=== PATIENT | female | born 1995 | race Caucasian/White ===

== ENCOUNTER 2018-09-07 13:14 | Outpatient (CLI) | payer OTHER ==
[~2018-09-07] VITALS: Ht 157.5 cm; Wt 75.9 kg
[2018-09-07 13:31] VITALS: Ht 157.5 cm; Wt 75.9 kg
[2018-09-07 13:33] VITALS: BP 119/58; PULSE 78; RESP 19
--- NOTE | 2018-09-07 16:42 | TRIAGE ---
OB Triage Datetime Report Generated by CPN: 09/07/2018 16:41 Datetime: 09/07/2018 16:22 Labor Evaluation Frequency: OCCAD Monitor Mode: External Duration (sec)2399: 50-70 Quality: Mild Pattern: Normal: <= 5 Contractions in 10 Minutes Resting Tone [place]: Relaxed Heart Rate FHR Baseline Rate: 135 Monitor Mode: External US FHR Baseline Changes: No Baseline Change Variability: Moderate 6-25 bpm Accelerations: 15X15 Decelerations: None Category: Category I Datetime: 09/07/2018 15:32 Labor Evaluation Frequency: OCCAS Monitor Mode: External Duration (sec)2399: 50-70 Quality: Mild Pattern: Normal: <= 5 Contractions in 10 Minutes Resting Tone [place]: Relaxed Heart Rate FHR Baseline Rate: 125 Monitor Mode: External US Variability: Moderate 6-25 bpm Accelerations: 15X15 Decelerations: None Category: Category I Datetime: 09/07/2018 14:07 EGA: 38.1 Datetime: 09/07/2018 13:38 Assessment Type: Triage Maternal Assessment Level of Consciousness: Fully Conscious DTR's/Clonus: DTRs 2+; No Clonus Headache: Denies Blurred Vision: No Respiratory Effort: Unlabored; Regular Rhythm; Equal Expansion Breath Sounds, Left: Clear and Equal Breath Sounds, Right: Clear and Equal Nausea/Vomiting: Denies RUQ Epigastric Pain: Denies Lower Extremities Edema: None Degree: None Upper Extremities Edema: None Degree: None Facial Edema: None Fall Risk Assessment History of Falling: (0) No Secondary Diagnosis: (0) No Ambulatory Aid: (0) Bedrest/Nurse Assist IV Therapy: (0) No Gait: (0) Normal/Bedrest/Immobile Mental Status: (0) Oriented to Own Ability Fall Score: 0 Fall Risk Score Definition: No Risk: No action required Labor Evaluation Frequency: 3-4 Monitor Mode: External Duration (sec)2399: 50-60 Quality: Mild Pattern: Normal: <= 5 Contractions in 10 Minutes Resting Tone [place]: Relaxed Heart Rate FHR Baseline Rate: 125 Monitor Mode: External US Variability: Moderate 6-25 bpm Accelerations: 15X15 Decelerations: None Category: Category I Datetime: 09/07/2018 13:37 EGA: 38.1 Datetime: 09/07/2018 13:36 Time of Arrival: 09/07/2018 13:05 Arrived By: Ambulatory Arrived From: Home Chief Complaint: R/O PREVIA Movement: Present Contractions: Denies/Absent Rupture of Membranes: Denies Vaginal Bleeding: None Vaginal Discharge: Denies Recent Sexual Intercouse: Denies Abdominal Trauma: Not Applicable Patient Complaints: Other Time Provider Notified: 09/07/2018 15:48 Provider Notified: DR AGUIRRE Initial Plan: TONY SELF POLLY
--- NOTE | 2018-09-10 04:36 | PN ---
Triage Information Date/Time late entry for service rendered on 09/07/18 Reason for visit: r/o previa Weeks of Gestation 38w1d /Para Diabetes: none Hypertention: none Objective Vital Signs Date Temp Pulse Resp B/P (MAP) Pulse Ox O2 O2 Flow FiO2 Time Delivery Rate 09/07/18 99.0 78 19 119/58 Room Air 13:33 (78) Heart Rate: 130's Heart Rate Comments CAT I tracing Contractions: None Results/Medications Imaging Results BPP 11/15 POLLY 14.6 placenta post right Disposition: Discharge Assessment/Plan A IUP 38w1d no previa P discharge home f/u with her OB GOLRIA AGUIRRE MD Sep 10, 2018 04:36
== END 2018-09-07 16:30 | disposition home or self-care (01) ==
LOC: OBT 13:14 → L-D 13:17 → OBT 16:30
PROVIDERS: ATTEND Obstetrics & Gynecology
DX: O09.33 Supervision of pregnancy with insufficient antenatal care, third trimester (principal); Z3A.38 38 weeks gestation of pregnancy
CPT/HCPCS: 76818; Z7500; G0463

== ENCOUNTER 2018-09-22 05:55 | Inpatient (IN) | payer OTHER ==
[~2018-09-22] VITALS: Ht 157.5 cm; Wt 76.1 kg
[2018-09-22 06:39] VITALS: Ht 157.5 cm; Wt 76.1 kg
[2018-09-22 06:41] VITALS: BP 151/85; PULSE 96; RESP 20
[2018-09-22] MEDS ORDERED: LACTATED RINGER'S 1,000 ML IV PRN (06:44)
[2018-09-22] MEDS ORDERED: OXYTOCIN 30 UNITS/LR 500 ML IV PRN (07:00)
[2018-09-22] MEDS ORDERED: MISOPROSTOL 200 MCG TAB PR PRN (07:00)
[2018-09-22] MEDS ORDERED: IBUPROFEN 600 MG TAB PO PRN (07:00)
[2018-09-22] MEDS ORDERED: METHYLERGONOVINE 0.2 MG INJ IM PRN (07:00)
[2018-09-22] MEDS ORDERED: CARBOPROST 250 MCG INJ IM PRN (07:00)
[2018-09-22] MEDS ORDERED: LIDOCAINE 1% (MPF) 30 ML INJ INJ PRN (07:00)
[2018-09-22] MEDS ORDERED: BUTORPHANOL 2 MG INJ IV PRN (07:00)
[2018-09-22] MEDS ORDERED: OXYTOCIN 30 UNITS/LR 500 ML IV SCH ×2 (07:00)
--- NOTE | 2018-09-22 07:50 | TRIAGE ---
OB Triage Datetime Report Generated by CPN: 09/22/2018 07:50 Datetime: 09/22/2018 07:27 Assessment Type: Admission Assessment Vaginal Bleeding: None Maternal Assessment Level of Consciousness: Keenly Alert, Responsive DTR's/Clonus: DTRs 2+; No Clonus Headache: Denies Blurred Vision: No Respiratory Effort: Unlabored; Regular Rhythm; Equal Expansion Breath Sounds, Left: Clear and Equal Breath Sounds, Right: Clear and Equal Nausea/Vomiting: Denies RUQ Epigastric Pain: Denies Lower Extremities Edema: None Degree: None Upper Extremities Edema: None Degree: None Facial Edema: None Fall Risk Assessment History of Falling: (0) No Secondary Diagnosis: (0) No Ambulatory Aid: (0) Bedrest/Nurse Assist IV Therapy: (0) No Gait: (0) Normal/Bedrest/Immobile Mental Status: (0) Oriented to Own Ability Fall Score: 0 Fall Risk Score Definition: No Risk: No action required Labor Evaluation Frequency: 0 Pattern: Normal: <= 5 Contractions in 10 Minutes Resting Tone [place]: Relaxed Heart Rate FHR Baseline Rate: 135 Variability: Moderate 6-25 bpm Accelerations: 15X15 Decelerations: None Category: Category I Pain Assessment Pain Scale: 9 Pain Presence: Intermittent Pain Type: Cramping; Contraction Pain Location: Abdomen Pain Goal: 0 Datetime: 09/22/2018 07:00 Labor Evaluation Frequency: Irregular Monitor Mode: External Duration (sec)2399: 40-100 Quality: Moderate Pattern: Normal: <= 5 Contractions in 10 Minutes Resting Tone [place]: Relaxed Heart Rate FHR Baseline Rate: 120 Monitor Mode: External US Variability: Moderate 6-25 bpm Accelerations: 15X15 Decelerations: Late Category: Category II Datetime: 09/22/2018 06:18 Vaginal Exam Dilatation (cms): 1.0 Effacement (%): 50 Station: -2 Exam By: TACO Antonio Membrane Status: Intact Vaginal Bleeding: Brown discharge Cervix, Consistency: Moderate Cervix, Position: Posterior Datetime: 09/22/2018 06:12 Stage of : OB Triage Assessment Type: Triage Maternal Assessment Level of Consciousness: Keenly Alert, Responsive DTR's/Clonus: DTRs 2+; No Clonus Headache: Denies Blurred Vision: No Respiratory Effort: Unlabored; Regular Rhythm; Equal Expansion Breath Sounds, Left: Clear and Equal Breath Sounds, Right: Clear and Equal Nausea/Vomiting: Hx of Nausea/Vomiting (Annotations: Pt vomited 1x yesterday) RUQ Epigastric Pain: Denies Lower Extremities Edema: Bilateral Lower Extremities Degree: 1+ Upper Extremities Edema: None Degree: None Facial Edema: None Temperature Route: Oral Fall Risk Assessment History of Falling: (0) No Secondary Diagnosis: (0) No Ambulatory Aid: (0) Bedrest/Nurse Assist IV Therapy: (0) No Gait: (0) Normal/Bedrest/Immobile Mental Status: (0) Oriented to Own Ability Fall Score: 0 Fall Risk Score Definition: No Risk: No action required Pain Assessment Pain Scale: 10 Pain Presence: Intermittent Pain Type: Cramping; Pressure Pain Location: Abdomen; Back Pain Relief Measures: Comfort Measures Pain Assessment Comments: Pt reports pain when moving Datetime: 09/22/2018 06:00 Time of Arrival: 09/22/2018 05:55 EGA: 40.3 Arrived By: Ambulatory Arrived From: Home Chief Complaint: Abdominal _ back pain Movement: Present Contractions: Irregular Time Contractions Began: 09/21/2018 20:30 Contractions: Pt uncertain Rupture of Membranes: Denies Vaginal Bleeding: None Vaginal Discharge: Present Abdominal Trauma: Not Applicable Patient Complaints: Contractions; Cramping; Back Pain Time Provider Notified: 09/22/2018 06:23 Provider Notified: Initial Plan: Monitor, VE Datetime: 09/07/2018 14:07 EGA: 38.2 Datetime: 09/07/2018 13:38 Fall Score: 0 Fall Risk Score Definition: No Risk: No action required Datetime: 09/07/2018 13:37 EGA: 38.1
--- NOTE | 2018-09-22 08:13 | HP ---
Date/Time of Note Date/Time of Note DATE: 09/22/18 TIME: 07:49 OB - History Hx of Present Free Text/Dictation Patient is a 22-year-old 1 para 0 at 40 weeks and 3 days of gestation with estimated date of delivery September 19, 2018 She is here for NST and BPP and complaining of uterine contractions Patient reports positive movement, denies vaginal bleeding or leaking fluid GBS status is negative Estimated Due Date: Sep 19, 2018 : 1 Para: 0 Care: Good Care Obstetrical Complications: None Medical Complications: None Past Family/Social History * Past Medical, Surgical, Family and Obstetric Histories reviewed from chart. OB Admission Exam Vital Signs Vital Signs Vital Signs Date Temp Pulse Resp B/P (MAP) Pulse Ox O2 O2 Flow FiO2 Time Delivery Rate 09/22/18 98.4 96 20 151/85 Room Air 06:41 (107) Physical Exam HEENT: WNL Heart: Rhythm Normal Lungs: Clear, Equal Abdomen: WNL Extremities: Normal Reflexes: Normal Cervical Dilatation: 1cm Effacement: 50% Station: -2 Membranes: Intact Heart Rate: 140's Accelerations: Accelerations Present Decelerations: No Decelerations Varibility: Moderate Contractions on Admission: >10 Minutes Apart Intensity: Mild Last 72 hours Lab Results Hematology - 72 Hrs Test 09/22/18 08:34 Hematocrit 33.9 % (37.0-47.0) L Hemoglobin 10.6 g/dl (12.0-16.0) L Mean Corpuscular Hemoglobin 24.8 pg (29.0-33.0) L Mean Corpuscular Hemoglobin Concent 31.3 g/dl (32.0-37.0) L Mean Corpuscular Volume 79.4 fl (82.0-101.0) L Mean Platelet Volume 11.6 fl (7.4-10.4) H Platelet Count 160 10^3/UL (140-415) Red Blood Count 4.27 10^6/ul (4.20-5.40) Red Cell Distribution Width 15.0 % (11.5-14.5) H White Blood Count 11.1 10^3/ul (4.8-10.8) H [place] [id number] Radiology Main Line: [phone] DIAGNOSTIC IMAGING REPORT Patient: BECKY FISCHER : 1995 Age: 22 Sex: F MR #: [id number] DOS: 09/22/18 0711 Ordering MD: AKILAH TINSLEY MD Location: [facility] Room/Bed: [facility] 3A PROCEDURE: US OB > 14 weeks. CLINICAL INDICATION: Post dates TECHNIQUE: Multiple sonographic images of the pelvis were obtained. The images were reviewed on a PACS workstation. COMPARISON: US 09/21/2018 FINDINGS: There is a single live intrauterine gestation. Cardiac activity is present with 124 beats per minute. Cephalic presentation. Measurements were made in order to determine age. The results are as follows: BPD = 8.69 cm 35 weeks 1 day HC = 31.51 cm 35 weeks 3 days AC = 36.86 cm 40 weeks 6 days FL = 7.44 cm 38 weeks 0 days Estimated gestational age of approximately 37 weeks 3 days. The estimated date of delivery is 10/10/2018. Estimated weight = 3592 grams (7 lb 15 oz), corresponding to 42nd percentile. No anatomic abnormalities demonstrated. The placenta is left lateral. There is no evidence for an abruption or placenta previa. IMPRESSION: Single live intrauterine gestation of approximately 37 weeks 3 days. Estimated weight = 3592 grams. RPTAT: HJ[facility] Physician Meg Date Time Electronically viewed and signed by Physician Meg on 09/22/2018 08:24 xB/ CC: AKILAH TINSLEY MD [phone] OB Assessment/Plan Reason for admission: induction of labor (postdates) Induction Method: per Misoprostol Protocol Other plan: Admit to labor and delivery Induction per protocol Pain meds as needed Copies To: CC: ELOY CAT BAHAREH MD Sep 22, 2018 08:08
[2018-09-22] MEDS: LACTATED RINGER'S 1,000 ML IV SCH ×2 (08:32→16:51)
[2018-09-22] MEDS: MISOPROSTOL 50 MCG CAPSULE PO SCH ×3 (09:25→17:30)
[2018-09-23] MEDS: MISOPROSTOL 50 MCG CAPSULE PO SCH (01:20)
[2018-09-23] MEDS: LACTATED RINGER'S 1,000 ML IV SCH ×4 (01:20→22:44)
[2018-09-23] MEDS ORDERED: FENTAnyl 2MCG/ML-ROPIV 0.2% 100 ML ONE (06:23)
--- NOTE | 2018-09-23 06:38 | PREAC ---
Date/Time of Note Date/Time of Note DATE: 09/23/18 TIME: 06:37 Anesthesia Eval and Record Evaluation Time Pre-Procedure Interview DATE: 09/23/18 TIME: 05:54 Age 22 Sex female NPO: 8 hrs Preoperative diagnosis iup @ 40 wks., , labor, h/o asthma/appy. Planned procedure autumn Past Medical History Past Medical History: Includes : : (1), Para: (0), Gestational age: (40 wks.) Surgery & Anesthesia Issues No known issue Meds Anticoagulation: No Beta Simran within 24 hr: No Reason Beta Simran not given: Pt. not on B-Simran No Active Prescriptions or Reported Meds Current Medications Lactated Ringer's 1,000 ml @ 125 mls/hr Q8H IV Last administered on 09/23/18at 01:20; Admin Dose 125 MLS/HR; Start 09/22/18 at 06:44 Butorphanol Tartrate (Stadol) 2 mg Q2H PRN IV .PAIN SCALE 6-10; Start 09/22/18 at 07:00 Lidocaine (Xylocaine 1% (Mpf)) 30 ml ONCE PRN INJ .EPISIOTOMY; Start 09/22/18 at 07:00 Oxytocin/Lactated Ringer's 500 ml @ 500 mls/hr ONCE POST IV ; Start 09/22/18 at 07:00 Oxytocin/Lactated Ringer's 500 ml @ 125 mls/hr POST IV ; Start 09/22/18 at 07:00 Ibuprofen (Motrin) 600 mg ONCE PRN PO .PAIN 1-5; Start 09/22/18 at 07:00 Lactated Ringer's 1,000 ml @ 2,000 mls/hr Q30M PRN IV .ANESTHESIA Last administered on 09/23/18at 05:48; Admin Dose 2,000 MLS/HR; Start 09/22/18 at 06:44 Oxytocin/Lactated Ringer's 500 ml @ 0 mls/hr ONCE PRN IV .VAGINAL BLEEDING; Start 09/22/18 at 07:00 Methylergonovine Maleate (Methergine) 0.2 mg ONCE PRN IM .VAGINAL BLEEDING; Start 09/22/18 at 07:00 Carboprost Tromethamine (Hemabate) 250 mcg ONCE PRN IM .VAGINAL BLEEDING; Start 09/22/18 at 07:00 Misoprostol (Cytotec) 1,000 mcg ONCE PRN NM .VAGINAL BLEEDING; Start 09/22/18 at 07:00 Misoprostol (Cytotec 50 Mcg Capsule) 50 mcg Q4 PO Last administered on 09/23/18at 01:20; Admin Dose 50 MCG; Start 09/22/18 at 09:00 Meds reviewed: Yes Allergies Coded Allergies: No Known Drug Allergies (Verified Allergy, Mild, 09/22/18) Allergies Reviewed: Yes Labs/Studies Labs Reviewed: Reviewed by anesthesiologist Result Diagram: 09/22/18 0834 Laboratory Tests 09/22/18 08:34 Blood Bank Test 09/22/18 08:36 Antibody Screen NEGATIVE Blood Type B POSITIVE Rh Immune Globulin Candidate NO test: Positive Studies: ECG (n/a), CXR (n/a) Pre-procedure Exam Last vitals Vital Signs Date Temp Pulse Resp B/P (MAP) Pulse Ox O2 O2 Flow FiO2 Time Delivery Rate 09/22/18 98.4 96 20 151/85 Room Air 06:41 (107) Airway: Adequate mouth opening, Adequate thyromental dist Mallampati: Mallampati II Teeth: Normal Lung: Normal Heart: Normal ASA Physical Status ASA physical status: 2 Emergency: E Planned Anesthetic Neuraxial: Epidural Planned Pain Management Epidural, Parenteral pain med, Local by surgeon Pre-operative Attestations Prior to commencing anesthesia and surgery, the patient was re-evaluated, there was verification of: *The patient's identity *The results of appropriate recent lab work and preoperative vital signs *The above evaluation not changing prior to induction *Anesthetic plan, risk benefits, alternative and complications discussed with patient/family; questions answered; patient/family understands, accepts and wishes to proceed. Bingo Worker used REBECCA ALTMAN MD Sep 23, 2018 06:38
[2018-09-23] MEDS ORDERED: LIDOCAINE 1.5%/EPI MPF (SDV) 30 ML VIAL ONE (07:00)
[2018-09-23] MEDS ORDERED: NALOXONE (0.4 MG/ML) INJ IV PRN ×2 (07:00→22:00)
[2018-09-23] MEDS ORDERED: ONDANSETRON 4 MG INJ ONE (07:00)
[2018-09-23] MEDS ORDERED: NALBUPHINE HCL (10 MG/1 ML) INJ IV PRN (07:00)
[2018-09-23] MEDS ORDERED: OXYTOCIN 30 UNITS/LR 500 ML BAG IV ONE (07:00)
[2018-09-23] MEDS ORDERED: ONDANSETRON 4 MG INJ IV PRN ×2 (07:00→22:00)
[2018-09-23] MEDS ORDERED: FENTAnyl 2MCG/ML-ROPIV 0.2% 100 ML BAG EPI SCH (07:00)
[2018-09-23] MEDS ORDERED: OXYTOCIN 30 UNITS/LR 500 ML IV SCH ×2 (16:00→21:00)
[2018-09-23] MEDS ORDERED: ACETAMINOPHEN 325 MG TAB PO ONE (16:00)
[2018-09-23] MEDS ORDERED: MINERAL OIL LIGHT 10 ML VIAL TOP ONE (20:00)
[2018-09-23] MEDS ORDERED: ACETAMINOPHEN 1000MG/100ML IV 100 ML IVPB ONE (20:30)
[2018-09-23] MEDS ORDERED: AMPICILLIN 2 GM/NS (PMX) 100 ML IVPB ONE (20:30)
[2018-09-23] MEDS: GENTAMICIN 80 MG/NS (PMX) 50 ML IVPB SCH (20:50)
[2018-09-23] MEDS ORDERED: OXYTOCIN 10 UNIT INJ ONE ×2 (20:59)
[2018-09-23] MEDS ORDERED: MISOPROSTOL 200 MCG TAB PR PRN (21:00)
[2018-09-23] MEDS ORDERED: CARBOPROST 250 MCG INJ IM PRN (21:00)
[2018-09-23] MEDS ORDERED: CEFAZOLIN 2 GM/50 ML (PMX) 50 ML IVPB SCH (21:00)
[2018-09-23] MEDS ORDERED: METHYLERGONOVINE 0.2 MG INJ IM PRN (21:00)
[2018-09-23] MEDS ORDERED: OXYTOCIN 30 UNITS/LR 500 ML IV PRN (21:00)
[2018-09-23] MEDS ORDERED: morphine SULFATE/PF (10 MG/10 ML) INJ ONE ×2 (21:01)
--- NOTE | 2018-09-23 21:49 | PAC ---
Date/Time of Note Date/Time of Note DATE: 09/23/18 TIME: 21:40 Post-Anesthesia Notes Post-Anesthesia Note Last documented vital signs Vital Signs Date Temp Pulse Resp B/P (MAP) Pulse Ox O2 O2 Flow FiO2 Time Delivery Rate 09/23/18 102.0 20:34 09/22/18 96 20 151/85 Room Air 06:41 (107) Activity: WNL Respiratory function: WNL Cardiovascular function: WNL Mental status: Baseline Pain reasonably controlled: Yes Hydration appropriate: Yes Nausea/Vomiting absent: Yes Comments BP:124/64, P:99, Spo2:100%, T:99 QUENTIN ROJAS MD Sep 23, 2018 21:49
[2018-09-23] MEDS ORDERED: DIPHENHYDRAMINE 50 MG INJ IV PRN (22:00)
[2018-09-23] MEDS ORDERED: morphine 2 MG INJ IV PRN (22:00)
[2018-09-24] MEDS: AMPICILLIN 1 GM/NS (PMX) 50 ML IVPB SCH ×5 (00:30→13:00)
[2018-09-24] MEDS: KETOROLAC 30 MG INJ IV PRN ×3 (00:48→21:28)
[2018-09-24] MEDS ORDERED: OXYTOCIN 30 UNITS/LR 500 ML IV SCH (00:52)
[2018-09-24] MEDS ORDERED: LACTATED RINGER'S 1,000 ML IV SCH (00:52)
[2018-09-24] MEDS ORDERED: OXYCODONE/ACETAMINOPHEN (5/325) TAB PO PRN (01:00)
[2018-09-24] MEDS ORDERED: SENNA/DOCUSATE NA (8.6MG/50MG) TAB PO PRN (01:00)
[2018-09-24] MEDS: CEFAZOLIN 1 GM/50 ML (PMX) 50 ML IVPB SCH ×3 (01:00→16:53)
[2018-09-24] MEDS ORDERED: METHYLERGONOVINE 0.2 MG INJ IM PRN (01:00)
[2018-09-24] MEDS ORDERED: OXYTOCIN 30 UNITS/LR 500 ML IV PRN (01:00)
[2018-09-24] MEDS ORDERED: MISOPROSTOL 200 MCG TAB PR PRN (01:00)
[2018-09-24] MEDS ORDERED: MAGNESIUM HYDROXIDE 30ML CUP PO PRN (01:00)
[2018-09-24] MEDS ORDERED: LANOLIN HPA 1 PKT TOP PRN (01:00)
[2018-09-24] MEDS ORDERED: BISACODYL 10 MG SUPP PR PRN (01:00)
[2018-09-24] MEDS ORDERED: ONDANSETRON 4 MG INJ IV PRN (01:00)
[2018-09-24] MEDS ORDERED: CARBOPROST 250 MCG INJ IM PRN (01:00)
[2018-09-24] MEDS ORDERED: ACETAMINOPHEN 325 MG TAB PO PRN (01:00)
[2018-09-24] MEDS ORDERED: AZITHROMYCIN 500MG/NS (PMX) 250 ML IVPB ONE (01:00)
--- NOTE | 2018-09-24 01:05 | OPR ---
Operative Report Planned Procedure Free Text/Dictation 22-year-old 1 para 0 at 40 weeks and 4 days of gestation induction for postdates Procedure date Sep 23, 2018 Procedure(s) Primary low transverse section Performed by see signature line [employer] [place] Attendant Yandy Rogers RN Pre-procedure diagnosis 1. heart rate tracing category 2/ tachycardia 2. Chorioamnionitis [id number] Anesthesia Type: Wiuct1v epidural Post-Procedure Post-procedure diagnosis 1. heart rate tracing category 2/ tachycardia 2. Chorioamnionitis Findings Live Baby [girl], Apgars [9] and [9], weight [7 pounds 7 ounces/ 3370 g], position [direct OP], [vertex] presentation IV fluid 1000 cc EBL 600 cc Urine output 200 cc Estimated Blood Loss: 500 - 600 mls Specimen(s) Placenta Grafts/Implant(s) none Complication(s) none Pt Condition post procedure: stable Disposition: PACU Procedure Description Patient was taken to the operating room after adequate amount of anesthesia was given patient was prepped and draped in normal sterile fashion Low transverse Pfannenstiel skin incision was made. Incision was carried through to the underlying layer of fascia using Bovie Fascia was incised in the midline and incision was extended bilaterally using Bovie Both anterior and posterior edge of the fascia were from underlying layer of rectus muscles Rectus muscles were in the midline and peritoneum was identified and entered sharply without any difficulty Peritoneum was extended bilaterally manually. A bladder flap was created. Then a low transverse uterine incision was made on the uterus Fetus was delivered from vertex presentation and after 30 seconds delayed cord clamping the fetus was handed immediately to the waiting ICU team Placenta was delivered manually intact. Uterus was exteriorized. Uterus was cleared off of all clots and debris Uterine incision was closed with 1 Vicryl suture in both running locked and a second layer imbricating fashion Multiple irrigations were performed and excellent hemostasis was noted. Both adnexa appeared normal Uterus was returned in the abdomen. Peritoneal closure proceeded with 2-0 Vicryl in a running fashion. Rectus muscles were reapproximated with 2-0 Vicryl Excellent hemostasis was confirmed Fascia was closed with 0-Vicryl suture in 2 separate segments in a running fashion Subcutaneous layer was closed with 0- plain suture in a continuous fashion Skin was closed with end-sorb laura and Dermabond glue All sponge, lap, needle counts were reported to be correct Patient tolerated the procedure well and taken back to recovery room in a stable condition AKILAH TINSLEY MD Sep 24, 2018 01:05
[2018-09-24] MEDS: GENTAMICIN 80 MG/NS (PMX) 50 ML IVPB SCH ×3 (04:52→22:06)
[2018-09-24] MEDS: CLINDAMYCIN 900 MG/D5W (PMX) 50 ML IVPB SCH ×4 (06:15→14:51)
[2018-09-24 08:00] VITALS: BP 109/55; PULSE 85; RESP 18
[2018-09-24] MEDS: LACTATED RINGER'S 1,000 ML IV SCH ×2 (10:30→21:29)
[2018-09-24 12:00] VITALS: BP 109/66; PULSE 88; RESP 18
[2018-09-24 16:00] VITALS: BP 114/56; PULSE 79; RESP 16
--- NOTE | 2018-09-24 18:00 | QN ---
Documentation Comment Postop day #1 Status post primary Patient stable and afebrile Vital signs stable VS - Last 72 Hours, by Label Date Temp Pulse Resp B/P (MAP) Pulse Ox O2 O2 Flow FiO2 Time Delivery Rate 09/24/18 97.9 79 16 114/56 16:00 (75) 09/24/18 98.2 88 18 109/66 96 Room Air 12:00 (80) 09/24/18 98.4 85 18 109/55 98 Room Air 08:00 (73) 09/23/18 102.0 20:34 09/23/18 101.6 19:50 09/22/18 98.4 96 20 151/85 Room Air 06:41 (107) Hematology - 72 Hrs Test 09/22/18 08:34 09/24/18 13:51 Hematocrit 33.9 % (37.0-47.0) L 29.1 % (37.0-47.0) L Hemoglobin 10.6 g/dl (12.0-16.0) L 9.0 g/dl (12.0-16.0) L Mean Corpuscular 24.8 pg (29.0-33.0) L 24.9 pg (29.0-33.0) L Hemoglobin Mean Corpuscular 31.3 g/dl (32.0-37.0) L 30.9 g/dl (32.0-37.0) L Hemoglobin Concent Mean Corpuscular Volume 79.4 fl (82.0-101.0) L 80.6 fl (82.0-101.0) L Mean Platelet Volume 11.6 fl (7.4-10.4) H 12.6 fl (7.4-10.4) H Platelet Count 160 10^3/UL (140-415) 123 10^3/UL (140-415) #L Red Blood Count 4.27 10^6/ul (4.20-5.40) 3.61 10^6/ul (4.20-5.40) L Red Cell Distribution 15.0 % (11.5-14.5) H 15.1 % (11.5-14.5) H Width White Blood Count 11.1 10^3/ul (4.8-10.8) 20.2 10^3/ul (4.8-10.8) H #H Monocytes # (Manual) 1.0 10^3/ul (0.3-0.9) H Chemistry Test 09/24/18 13:51 Sodium Level 138 mmol/L (135-144) Potassium Level 3.7 mmol/L (3.5-5.1) Chloride Level 106 mmol/L (97-110) Carbon Dioxide Level 27 mmol/L (21-31) Anion Gap 5 (5-13) Blood Urea Nitrogen 4 mg/dl (7-20) L Creatinine 0.78 mg/dl (0.44-1.00) Est Glomerular Filtrat Rate mL/min > 60 mL/min (>60) Glucose Level 62 mg/dl (70-220) L Calcium Level 8.2 mg/dl (8.4-10.2) L Total Bilirubin 0.6 mg/dl (0.2-1.3) Direct Bilirubin 0.00 mg/dl (0.00-0.20) Indirect Bilirubin 0.6 mg/dl (0-1.1) Aspartate Amino Transf (AST/SGOT) 102 IU/L (15-46) H Alanine Aminotransferase (ALT/SGPT) 37 IU/L (13-69) Alkaline Phosphatase 116 IU/L (42-121) Total Protein 5.6 g/dl (6.1-8.1) L Albumin 2.8 g/dl (3.3-4.9) L Globulin 2.80 g/dl (1.3-3.2) Albumin/Globulin Ratio 1.00 Microbiology BLOOD CULTURE Preliminary BCULT GRAM BOTTLE 1 Gram negative rods . seen on gram stain of the broth BCULT GRAM BOTTLE 2 Gram negative rods . seen on gram stain of the broth Organism 1 GRAM NEGATIVE MAMIE CRITICAL TEST VALUE BTL 1 . PHONED TO & READ BACK BY JOCELYN DE LA CRUZ, AT 0859, 09/24/18, HN. Microbiology URINE CULTURE Preliminary Organism 1 GRAM NEGATIVE MAMIE COLONY COUNT >100,000 CFU/ml Abdomen soft, fundus firm Incision clean,dry,intact Extremities nontender Assessment and plan Patient stable and doing well Continue with IV antibiotics Ancef and gentamicin Labs to be done in a.m. Encouraged to ambulate Continue with routine postop care AKILAH TINSLEY MD Sep 24, 2018 18:00
[2018-09-24 21:30] VITALS: BP 131/66; PULSE 110; RESP 18
[2018-09-25 00:52] VITALS: BP 123/61; PULSE 68; RESP 18
[2018-09-25] MEDS ORDERED: CEFAZOLIN 1 GM/50 ML (PMX) 50 ML IVPB SCH (01:00)
[2018-09-25 03:25] VITALS: BP 136/69; PULSE 99; RESP 19
[2018-09-25] MEDS: OXYCODONE/ACETAMINOPHEN (5/325) TAB PO PRN ×3 (05:52→20:20)
[2018-09-25] MEDS: GENTAMICIN 80 MG/NS (PMX) 50 ML IVPB SCH ×2 (05:52→13:00)
[2018-09-25 08:00] VITALS: BP 133/71; PULSE 89; RESP 18
[2018-09-25 17:04] VITALS: BP 111/55; PULSE 67; RESP 18
[2018-09-25 19:55] VITALS: BP 127/77; PULSE 77; RESP 19
[2018-09-25] MEDS: IBUPROFEN 600 MG TAB PO PRN (21:27)
--- NOTE | 2018-09-26 00:36 | PN ---
Date/Time of Note Date/Time of Note DATE: 09/26/18 TIME: 00:29 OB Subjective Subjective Subjective Late entry note. Patient seen on 09/25/2018 POD#2 Patient is doing well. She denies nausea, vomiting, shortness of breath, chest pain, headache. She has been ambulating without difficulty, tolerating regular diet. Pain is well controlled on current medications OB Objective Objective Objective Vital Signs Date Temp Pulse Resp B/P (MAP) Pulse Ox O2 O2 Flow FiO2 Time Delivery Rate 09/25/18 98.2 77 19 127/77 Room Air 19:55 (94) 09/24/18 98 21:30 General: AAO X 3, comfortable, NAD, appropriate mood and affect. ABD: +BS. Soft, non-tender. Uterus 2 cm below umbilicus Incision: Clear, dry, intact. No erythema, drainage or induration. Flank: No CVA tenderness (B/L) LE: Mild edema. No clubbing, cyanosis, thigh or calf tenderness (B/L). Homans 'sign is negative OB Assessment/Plan Other plan: 22 years old 1 para 1-0-0-1 s/p delivery at 40 weeks and 4 days. POD#2 - AF, VSS - Baby is doing well, at bed side. She is bonding well - Contraception methods with R/B/A/FR discussed - Continue care - Discharge home tomorrow - Rx and instruction given - Follow up in one and 6 weeks ELOY CAT Sep 26, 2018 00:36
[2018-09-26 03:55] VITALS: BP 114/68; PULSE 71; RESP 18
[2018-09-26] MEDS: OXYCODONE/ACETAMINOPHEN (5/325) TAB PO PRN (07:35)
[2018-09-26] MEDS: IBUPROFEN 600 MG TAB PO PRN (07:35)
[2018-09-26 08:00] VITALS: BP 139/71; PULSE 106; RESP 18
--- NOTE | 2018-09-26 09:27 | DS ---
Date/Time of Note Date/Time of Note DATE: 09/26/18 TIME: 09:25 Obstetrical Discharge Record Final Diagnosis Final Diagnosis: Term delivered Other Final Diagnosis 22 years old 1 para 1-0-0-1 s/p primary delivery at 40 weeks and 4 days. POD#3. course was unremarkable. She is ambulating and tolerating regular diet. She is voiding without difficulty. Pain is controlled on current medication. She was suspected to chorioamnionitis received ampicillin and gentamicin before and after delivery. She is currently afebrile, vital signs stable. Leukocytosis also resolved. - Baby is doing well, at bed side. She is bonding well - Contraception methods with R/B/A/FR discussed - Continue care - Discharge home - Rx and instruction given - Follow up in one and 6 weeks Section Section: Primary ( intolerance of labor) Condition on Discharge Physical Assessment Voiding: Yes Bowel Movement: Yes Breast: Soft, non-tender Fundus: Firm Calf Tenderness: No Patient Condition: Stable ELOY CAT Sep 26, 2018 09:27
--- NOTE | 2018-09-27 15:14 | DELSUM ---
Delivery Summary A-C Datetime Report Generated by N: 09/27/2018 15:14 DELIVERY PERSONNEL Zanjero: Fistell, Chuck MATERNAL INFORMATION Delivery Anesthesia: Epidural (Annotations: Data stored by [facility] on behalf of user) Medications in Delivery: PITOCIN 30 UNITS PER ANESTHESIA IV Delivery QBL (ml): 600 Placenta Cultured: No Maternal Complications: Maternal Fever RN Comments: TEMP 102.4 BEFORE DELIVERY LABOR SUMMARY EDC: 09/19/2018 00:00 No. Babies in Womb: 1 Attempted: No Labor Anesthesia: Epidural LABOR INFORMATION Reason for Induction: Postterm Onset of Labor: 09/22/2018 06:00 Cervical Ripening Agents: Cytotec @ Oxytocin: Induction Group B Beta Strep: Negative Antibiotics # of Doses: AMPICILLIN 2 GM Antibiotics Time of Last Dose: 09/24/2018 20:45 Steroids Given: None Reason Steroids Not Administered: Not Applicable MEMBRANES Membranes Rupture Method: Spontaneous Rupture of Membranes: 09/24/2018 19:50 Length of Rupture (hr): -22.82 Amniotic Fluid Color: Clear Amniotic Fluid Amount: Large STAGES OF LABOR Stage 3 hr: 24 Stage 3 min: 1 Total Time in Labor hr: 63 Total Time in Labor min: 2 CSECTION DELIVERY Primary Indication: Nonreassuring Stat Secondary Indication: CHORIO/FEVER 102.4/ TACHYCARDIA CSection Urgency: Emergency CSection Incidence: Primary Labor: Labor CSection Incision: Lower Uterine Transverse BABY A INFORMATION Delivery Date/Time: 09/23/2018 21:01 Method of Delivery: Born in Route : No : N/A Forceps: N/A Vacuum Extraction: N/A Shoulder Dystocia : No SHOULDER DYSTOCIA BABY A Infant Delivery Date/Time: 09/23/2018 21:01 PRESENTATION/POSITION BABY A Presentation: Cephalic Cephalic Presentation: Vertex Vertex Position: Right Occipital Posterior Breech Presentation: N/A PLACENTA INFORMATION BABY A Placenta Delivery Time : 09/24/2018 21:02 Placenta Method of Delivery: Manual Removal Placenta Status: Delivered SCORES BABY A Heart Rate 1 min: >100 bpm Resp Effort 1 min: Good Cry Reflex Irritability 1 min: Cough/Sneeze/Pulls Away Muscle Tone 1 min: Active Motion Color 1 min: Body [place], Extremit Blue SCORE 1 MIN: 9 Heart Rate 5 min: >100 bpm Resp Effort 5 min: Good Cry Reflex Irritability 5 min: Cough/Sneeze/Pulls Away Muscle Tone 5 min: Active Motion Color 5 min: Body [place], Extremit Blue SCORE 5 MIN: 9 INFANT INFORMATION BABY A Gestational Age at Delivery: 40.4 Gestational Status: Full Term- 39- 40.6 Weeks Outcome : Liveborn Infant Condition : Stable Infant Sex: Female IDENTIFICATION/MEDS BABY A ID Band Number: [id number] ID Band Location: Right Leg; Left Leg Sensor Number: [id number] Sensor Location : Cord Clamp Vitamin K Given : Not Given Erythromycin Given: Not Given WEIGHT/LENGTH BABY A Birthweight (gm): 3370 Weight (lb): 7 Weight (oz): 7 Length (in): 21.00 Infant Length (cm): 53.34 CORD INFORMATION BABY A No. Cord Vessels: 3 Nuchal Cord : N/A Cord Blood Taken: Yes Infant Suction: Mouth; Nose ASSESSMENT BABY A Complications: None Physical Findings at Delivery: Within Normal Limits Respirations: Appears Normal Pantry Cook/ALS Called : Yes Infant Care By: REGINALD FARMER RT/ASSEMBLER BODY Transferred To: Remains with Mother
--- NOTE | 2018-09-29 07:39 | PAC ---
Date/Time of Note Date/Time of Note DATE: 09/23/18 TIME: 23:30 Post-Anesthesia Notes Post-Anesthesia Note Last documented vital signs Vital Signs Date Temp Pulse Resp B/P (MAP) Pulse Ox O2 O2 Flow FiO2 Time Delivery Rate 09/26/18 98.5 106 18 139/71 08:00 (93) 09/26/18 Room Air 03:55 Activity: WNL Respiratory function: WNL Cardiovascular function: WNL Mental status: Baseline Pain reasonably controlled: Yes Hydration appropriate: Yes Nausea/Vomiting absent: Yes REBECCA ALTMAN MD Sep 29, 2018 07:39
== END 2018-09-26 13:45 | disposition home or self-care (01) | DRG 786 ==
LOC: OBT 05:55 → L-D 05:55 → OBT 06:23 → L-D 06:23 → PP1 09-24 01:45
PROVIDERS: ADMIT Obstetrics & Gynecology; ATTEND Obstetrics & Gynecology
PROC: 3E033VJ Introduction of Other Hormone into Peripheral Vein, Percutaneous Approach (ICD-10-PCS; 2018-09-23)
PROC: 10D00Z1 Extraction of Products of Conception, Low, Open Approach (ICD-10-PCS; principal; 2018-09-23 21:00)
DX: O48.0 Post-term pregnancy (principal); O41.1230 Chorioamnionitis, third trimester, not applicable or unspecified; Z3A.40 40 weeks gestation of pregnancy; O76 Abnormality in fetal heart rate and rhythm complicating labor and delivery; Z37.0 Single live birth
CPT/HCPCS: 62322; 76815; 80053; 80307; 85025; 85610; 85730; 86592; 86850; 86900; 86901; 87070; 87086; 88307; 99464; G0463; J0131; J0290; J0456; J0690; J1580; J1885; J2270; J2274; J2405; J2590; J3010; J7120